=== PATIENT | male | born 1975 | race Two or more races ===

== ENCOUNTER → 2021-05-21 | Outpatient (CLI) | payer OTHER, MEDICAID ==
--- NOTE | 2021-05-21 11:02 | KCIC ---
EXAMINATION: MRI LEFT LOWER EXTREMITY JOINT WITHOUT INDICATIONS: Chronic left knee pain for 4 years. [place] a pop 1 month ago]. Limited range of motion, l ocking.. TECHNIQUE: Multiplanar multisequence MRI of the left knee was obtained without contrast. COMPARISON: Left knee radiograph 05/11/2021 FINDINGS: MENISCI: The medial and lateral menisci are intact. LIGAMENTS: The anterior and posterior cruciate ligaments are intact. The medial collateral ligament is intact. The fibular collateral ligament and popliteus tendon are not well visualized proximally al though there is no significant surrounding edema. This is suspicious for old injury. Biceps femoris a nd iliotibial band are intact. EXTENSOR MECHANISM: There is lateral dislocation of the patella relative to the trochlea, likely old . There is marrow edema in the lateral femoral condyle and small chronic avulsion fracture of the inf erior medial patella but no significant marrow edema in the patella. There is attenuation and irregul arity of the medial patellofemoral ligament at the patellar attachment with surrounding increased sig nal. There are some foci of susceptibility in this region suggesting prior surgery. The lateral retin aculum is indistinct proximally. There is edema along both retinacula. Quadriceps and patellar tendon s are intact. The tibial tubercle-trochlear groove distance is 2.4. The trochlea is shallow in morpho logy. BONES AND CARTILAGE: There is moderate marrow edema in the medial tibial plateau with a low signal fr acture line consistent with a stress fracture. Partial-thickness cartilage loss of the lateral patell ar facet with small chronic avulsion fracture. No significant cartilage loss along the trochlea. Medi al and lateral compartment cartilage is intact. OTHER: Small joint effusion. Mild subcutaneous edema anteriorly. No bursitis. IMPRESSION: 1. Acute stress fracture of the medial femoral condyle. 2. Lateral patellar dislocation, likely chronic. Small chronic avulsion fracture at the inferior medi al edge of the patella. 3. There is susceptibility in the region of the patella and medial patellofemoral ligament suggesting prior medial patellofemoral ligament repair. Irregularity and increased signal of the medial patello femoral ligament at the patellar attachment may reflect age-indeterminate partial tear and/or the pos tsurgical appearance. 4. Findings of patellar maltracking with increased tibial tubercle trochlear groove distance and shal low trochlea. 5. Probable old partial tears of the proximal fibular collateral ligament and popliteus tendon, which are not well visualized. 6. Patellofemoral cartilage loss. Electronically signed by: Patty Avila MD (05/21/2021 11:00 AM) [id number]
== END ==
LOC: KCIC MRI 07:56
PROVIDERS: ATTEND Orthopaedic Surgery
DX: S83.015A Lateral dislocation of left patella, initial encounter (principal); S82.092A Other fracture of left patella, initial encounter for closed fracture; M25.462 Effusion, left knee; X58.XXXA Exposure to other specified factors, initial encounter; Y93.89 Activity, other specified; Y92.89 Other specified places as the place of occurrence of the external cause; Y99.8 Other external cause status
CPT/HCPCS: 73721